=== PATIENT | female | born 1985 | race Caucasian/White ===

== ENCOUNTER 2018-08-14 11:33 | Emergency (ER) | payer OTHER ==
[~2018-08-14] VITALS: Ht 162.6 cm; Wt 47.6 kg
[~2018-08-14 11:33] MED LIST: ACETAMINOPHEN325 MG; ALPRAZOLAM 0.0.25 MG; ALPRAZOLAM1 MG PO; COLACE 100 MG100 MG PO; EXCEDRIN CAPLE1 EACH PO; IBUPROFEN 800800 M1 PO; IRON325 PO; KEFLEX500 MG PO; LANOLIN56 GM; LEXAPRO20 MG PO; NORCO 5-325 TA1 EACH PO; PREDNISONE 20 M20 MG PO; PROZAC 10 MG CA10 M1; PROZAC 20 MG20 MG PO; TRAZODONE HCL50 MG PO; ZANAFLEX4 MG
[2018-08-14 11:34] VITALS: BP 110/78
[2018-08-14 12:40] LABS: URINE BILIRUBIN NEGATIVE (Negative); URINE BLOOD 1+ (Negative); URINE CLARITY CLEAR; URINE COLOR YELLOW; URINE GLUCOSE-RANDOM* NEGATIVE (Negative); URINE KETONES NEGATIVE (Negative); URINE LEUKOCYTES-REFLEX NEGATIVE (Negative); URINE PROTEIN (DIPSTICK) TRACE (Negative); URINE SPECIFIC GRAVITY >= 1.030 (1.005-1.035); URINE UROBILINOGEN 0.2 E.U./dl (0.2-1.0)
[2018-08-14 12:41] LABS: ABSOLUTE NEUTROPHILS 7.4 thou/uL (1.4-8.2); BASOPHILS 0.9 % (0.0-2.0); EOSINOPHILS 2.4 % (0.0-3.0); HEMATOCRIT 42.4 % (37.0-47.0); HEMOGLOBIN 14.2 gm/dL (12.0-15.0); LYMPHOCYTES 18.2 % (24.0-44.0); MCH 31.7 pg (26.0-34.0); MCHC 33.4 g/dL (28.0-37.0); MCV 94.9 fL (80.0-100.0); MONOCYTES 6.2 % (1.0-8.0); PLATELET COUNT 323 thou/uL (150-400); POLYS 72.3 % (36.0-66.0); RBC 4.47 mil/uL (4.20-5.00); RDW 12.9 % (10.5-14.5); WBC 10.2 thou/uL (4.0-11.0)
[2018-08-14 12:41] LABS: URINE NITRITE-REFLEX POSITIVE (Negative)
[2018-08-14 12:48] LABS: CALCIUM 9.9 mg/dL (8.5-10.1); CREATININE 0.9 mg/dL (0.6-1.0); POTASSIUM 4.5 mmol/L (3.5-5.1)
[2018-08-14 12:50] LABS: AMORPHOUS URATES Moderate /LPF (None Seen); BACTERIA-REFLEX >30 Many /HPF (None Seen); CASTS None Seen /LPF (None Seen); SQUAMOUS 0-3 Few /LPF (0-3); URINE RBC 3-10 Few /HPF (0-2); URINE WBC-REFLEX 0-5 Rare /HPF (0-5)
[2018-08-14 12:54] LABS: ALBUMIN 4.3 g/dL (3.4-5.0); TOTAL BILIRUBIN 0.5 mg/dL (<0.1-1.0); TOTAL PROTEIN 7.6 g/dL (6.4-8.2)
[2018-08-14] MEDS ORDERED: MOBIC15 MG PO (13:12)
[2018-08-14] MEDS ORDERED: KEFLEX500 M1 PO (13:12)
[2018-08-14] MEDS ORDERED: DIFLUCAN150 MG PO (13:26)
== END 2018-08-14 16:16 | disposition home or self-care (01) ==
LOC: ER 11:33
PROVIDERS: Physician Assistant
DX: S00.83XA Contusion of other part of head, initial encounter (principal); S80.12XA Contusion of left lower leg, initial encounter; S80.11XA Contusion of right lower leg, initial encounter; N39.0 Urinary tract infection, site not specified; F17.210 Nicotine dependence, cigarettes, uncomplicated; Z98.890 Other specified postprocedural states; Y08.89XA Assault by other specified means, initial encounter; Y93.89 Activity, other specified; Y92.89 Other specified places as the place of occurrence of the external cause; Y99.8 Other external cause status

== ENCOUNTER 2019-03-15 22:35 | Emergency (ER) | payer OTHER ==
[~2019-03-15] VITALS: Ht 162.6 cm; Wt 47.6 kg
[~2019-03-15 22:35] MED LIST changes: +DIFLUCAN150 MG PO; +KEFLEX500 M1 PO; +MOBIC15 MG PO
[2019-03-15 23:40] LABS: URINE BILIRUBIN NEGATIVE (Negative); URINE BLOOD 1+ (Negative); URINE CLARITY CLEAR; URINE COLOR YELLOW; URINE GLUCOSE-RANDOM* NEGATIVE (Negative); URINE KETONES NEGATIVE (Negative); URINE LEUKOCYTES-REFLEX NEGATIVE (Negative); URINE NITRITE-REFLEX NEGATIVE (Negative); URINE PROTEIN (DIPSTICK) NEGATIVE (Negative); URINE UROBILINOGEN 0.2 E.U./dl (0.2-1.0)
[2019-03-15 23:54] LABS: BACTERIA-REFLEX None Seen /HPF (None Seen); CASTS None Seen /LPF (None Seen); CRYSTALS None Seen /LPF (None Seen); MUCUS None Seen strn/LPF (None Seen); SQUAMOUS None Seen /LPF (0-3); URINE RBC 0-2 Rare /HPF (0-2); URINE WBC-REFLEX 0-5 Rare /HPF (0-5)
[2019-03-16 02:02] LABS: ABSOLUTE NEUTROPHILS 7.6 thou/uL (1.4-8.2); BASOPHILS 0.6 % (0.0-2.0); HEMATOCRIT 37.7 % (37.0-47.0); HEMOGLOBIN 12.5 gm/dL (12.0-15.0); LYMPHOCYTES 20.9 % (24.0-44.0); MCH 29.8 pg (26.0-34.0); MCHC 33.2 g/dL (28.0-37.0); MCV 89.9 fL (80.0-100.0); MONOCYTES 7.5 % (1.0-8.0); PLATELET COUNT 320 thou/uL (150-400); RDW 15.5 % (10.5-14.5); WBC 10.8 thou/uL (4.0-11.0)
[2019-03-16 03:50] LABS: CALCIUM 8.6 mg/dL (8.5-10.1); CREATININE 0.7 mg/dL (0.6-1.0); POTASSIUM 3.9 mmol/L (3.5-5.1)
[2019-03-16 04:26] VITALS: BP 129/87
== END 2019-03-16 04:32 | disposition home or self-care (01) ==
LOC: ER 22:35
PROVIDERS: Emergency Medicine
DX: O20.0 Threatened abortion (principal); F17.210 Nicotine dependence, cigarettes, uncomplicated

== ENCOUNTER 2019-04-13 00:04 | Emergency (ER) | payer OTHER ==
[~2019-04-13] VITALS: Ht 152.4 cm; Wt 54.9 kg
[2019-04-13 01:05] LABS: ABSOLUTE NEUTROPHILS 3.8 thou/uL (1.4-8.2); BASOPHILS 0.6 % (0.0-2.0); EOSINOPHILS 3.4 % (0.0-3.0); HEMATOCRIT 42.6 % (37.0-47.0); HEMOGLOBIN 13.8 gm/dL (12.0-15.0); LYMPHOCYTES 39.4 % (24.0-44.0); MCH 28.6 pg (26.0-34.0); MCHC 32.4 g/dL (28.0-37.0); MCV 88.3 fL (80.0-100.0); MONOCYTES 10.4 % (1.0-8.0); PLATELET COUNT 359 thou/uL (150-400); POLYS 46.2 % (36.0-66.0); RBC 4.83 mil/uL (4.20-5.00); RDW 15.8 % (10.5-14.5); WBC 8.3 thou/uL (4.0-11.0)
[2019-04-13 01:07] LABS: ANION GAP 13 mmol/L (7-16); BUN 9 mg/dL (7-18); CALCIUM 9.5 mg/dL (8.5-10.1); CHLORIDE 102 mmol/L (98-107); CO2 27 mmol/L (21-32); CREATININE 1.1 mg/dL (0.6-1.0); GLUCOSE 65 mg/dL (74-106); POTASSIUM 4.2 mmol/L (3.5-5.1); SODIUM 142 mmol/L (136-145)
[2019-04-13 01:18] LABS: ALBUMIN 4.5 g/dL (3.4-5.0); MAGNESIUM 2.2 mg/dL (1.8-2.4); SGOT 19 U/L (15-37); SGPT 22 U/L (30-65); TOTAL BILIRUBIN 0.4 mg/dL (<0.1-1.0); TOTAL PROTEIN 8.1 g/dL (6.4-8.2); TROPONIN-I <0.06 ng/mL (<0.06)
[2019-04-13 01:20] LABS: URINE BILIRUBIN 1+ (Negative); URINE BLOOD NEGATIVE (Negative); URINE CLARITY CLOUDY; URINE COLOR YELLOW; URINE GLUCOSE-RANDOM* NEGATIVE (Negative); URINE KETONES TRACE (Negative); URINE LEUKOCYTES-REFLEX NEGATIVE (Negative); URINE NITRITE-REFLEX NEGATIVE (Negative); URINE PROTEIN (DIPSTICK) 2+ (Negative); URINE SPECIFIC GRAVITY >= 1.030 (1.005-1.035); URINE UROBILINOGEN 0.2 E.U./dl (0.2-1.0)
[2019-04-13 01:28] LABS: AMP/METHAMP POSITIVE (Negative); BARBITURATES Negative (Negative); BENZODIAZEPINES Negative (Negative); COCAINE Negative (Negative); METHADONE Negative (Negative); OPIATES Negative (Negative); PCP Negative (Negative)
[2019-04-13] MEDS ORDERED: TOPAMAX50 MG PO (01:46)
[2019-04-13] MEDS ORDERED: ALDACTONE50 MG PO (01:46)
[2019-04-13] MEDS ORDERED: LEVO-T75 MCG PO (01:47)
[2019-04-13] MEDS ORDERED: TIZANIDINE HCL 22 M1 PO (01:47)
[2019-04-13] MEDS ORDERED: ADDERALL 5 MG TA5 M1 PO (01:48)
[2019-04-13] MEDS ORDERED: PROZAC20 M1 PO (01:48)
[2019-04-13] MEDS ORDERED: XANAX 0.5 MG0.5 M1 PO (01:49)
[2019-04-13] MEDS ORDERED: MOBIC7.5 MG PO (01:49)
[2019-04-13 02:00] LABS: SQUAMOUS 4-10 Moderate /LPF (0-3); URINE RBC 3-10 Few /HPF (0-2); URINE WBC-REFLEX 0-5 Rare /HPF (0-5)
[2019-04-13 02:01] LABS: BACTERIA-REFLEX 1-9 Few /HPF (None Seen); CASTS None Seen /LPF (None Seen); CRYSTALS None Seen /LPF (None Seen); MUCUS 4-6 Moderate strn/LPF (None Seen)
[2019-04-13] MEDS ORDERED: NAPROXEN375 MG PO (02:02)
[2019-04-13 02:03] VITALS: BP 115/73
--- NOTE | 2019-04-13 09:07 | EKG ---
[facility] [place] [address] ELECTROCARDIOGRAM REPORT Name: TATE BOWEN [facility] [id number] Admission: 04/13/19 Attend Phys: Discharge: 04/13/19 Date of : 81 Report #: [id number] THIS REPORT FOR: cc: [facility] - Clinic physician unknown [facility] - Clinic physician unknown Juan J Felix MD [facility] ~ THIS REPORT FOR: //name// [facility] ED Test Date: 2019-04-13 Test Time: 00:39:59 Pat Name: TATE BOWEN Department: Room: Gender: F Home Manager: [facility] : 1985 Requested By: Tom Hooks Order Number: [id number] MD: Juan J Felix Measurements Intervals [place] Rate: 77 P: 45 VT: 138 QRS: 91 QRSD: 96 T: 61 QT: 372 QTc: 421 Interpretive Statements Sinus rhythm Borderline right axis deviation No previous ECG available for comparison Electronically Signed On 04-13-2019 9:06:51 [employer] by Juan J Felix [email or web address] <ELECTRONICALLY SIGNED> By: Juan J Felix MD, [facility] 04/13/19 [id number] Juan J Felix MD, FACC /EPI
== END 2019-04-13 02:31 | disposition home or self-care (01) ==
LOC: ER 00:04
PROVIDERS: Emergency Medicine
DX: R55 Syncope and collapse (principal); G89.29 Other chronic pain; M54.5 Low back pain; M79.7 Fibromyalgia; M19.90 Unspecified osteoarthritis, unspecified site; E03.9 Hypothyroidism, unspecified; G40.909 Epilepsy, unspecified, not intractable, without status epilepticus; I10 Essential (primary) hypertension; F15.10 Other stimulant abuse, uncomplicated; F17.210 Nicotine dependence, cigarettes, uncomplicated; Z90.49 Acquired absence of other specified parts of digestive tract; Z79.899 Other long term (current) drug therapy; Z88.8 Allergy status to other drugs, medicaments and biological substances; Z96.22 Myringotomy tube(s) status

== ENCOUNTER 2019-07-13 07:47 | Emergency (ER) | payer OTHER ==
[~2019-07-13] VITALS: Ht 162.6 cm; Wt 54.4 kg
[~2019-07-13 07:47] MED LIST changes: +ADDERALL 5 MG TA5 M1 PO; +ALDACTONE50 MG PO; +LEVO-T75 MCG PO; +MOBIC7.5 MG PO; +NAPROXEN375 MG PO; +PROZAC20 M1 PO; +TIZANIDINE HCL 22 M1 PO; +TOPAMAX50 MG PO; +XANAX 0.5 MG0.5 M1 PO
[2019-07-13 08:24] LABS: ABSOLUTE NEUTROPHILS 4.4 thou/uL (1.4-8.2); BASOPHILS 1.2 % (0.0-2.0); EOSINOPHILS 4.1 % (0.0-3.0); HEMATOCRIT 39.2 % (37.0-47.0); MCH 28.6 pg (26.0-34.0); MCHC 33.1 g/dL (28.0-37.0); MCV 86.5 fL (80.0-100.0); MONOCYTES 8.5 % (1.0-8.0); PLATELET COUNT 296 thou/uL (150-400); POLYS 59.2 % (36.0-66.0); RBC 4.53 mil/uL (4.20-5.00); WBC 7.5 thou/uL (4.0-11.0)
[2019-07-13] MEDS ORDERED: PROZAC20 M1 PO (08:25)
[2019-07-13] MEDS ORDERED: TRAZODONE HCL50 MG PO (08:25)
[2019-07-13] MEDS ORDERED: SPIRONOLACTONE50 MG PO (08:26)
[2019-07-13] MEDS ORDERED: MELOXICAM15 MG PO (08:26)
[2019-07-13] MEDS ORDERED: LEVO-T75 MCG PO (08:26)
[2019-07-13] MEDS ORDERED: ALPRAZOLAM 0.50.5 M1 PO (08:27)
[2019-07-13] MEDS ORDERED: TIZANIDINE HCL 22 M1 PO (08:27)
[2019-07-13 08:33] LABS: ANION GAP 5 mmol/L (7-16); BUN 9 mg/dL (7-18); CALCIUM 8.6 mg/dL (8.5-10.1); CHLORIDE 104 mmol/L (98-107); CO2 30 mmol/L (21-32); CREATININE 0.9 mg/dL (0.6-1.0); GLUCOSE 108 mg/dL (74-106); POTASSIUM 3.5 mmol/L (3.5-5.1); SODIUM 139 mmol/L (136-145)
[2019-07-13 08:39] LABS: SALICYLATE 5.3 mg/dL (2.8-20.0); SGOT 15 U/L (15-37); SGPT 19 U/L (30-65); TOTAL BILIRUBIN 0.2 mg/dL (0.2-1.0); TOTAL PROTEIN 7.1 g/dL (6.4-8.2)
[2019-07-13 08:51] LABS: URINE BILIRUBIN NEGATIVE (Negative); URINE BLOOD NEGATIVE (Negative); URINE CLARITY CLEAR; URINE COLOR YELLOW; URINE GLUCOSE-RANDOM* NEGATIVE (Negative); URINE KETONES NEGATIVE (Negative); URINE LEUKOCYTES-REFLEX NEGATIVE (Negative); URINE NITRITE-REFLEX NEGATIVE (Negative); URINE PROTEIN (DIPSTICK) NEGATIVE (Negative)
--- NOTE | 2019-07-13 08:56 | EKG ---
[facility] [place] [address] ELECTROCARDIOGRAM REPORT Name: TATE BOWEN Room #: REG [facility].#: [id number] Admission: 07/13/19 Attend Phys: Discharge: Date of : 81 Report #: [id number] THIS REPORT FOR: cc: [facility] - Clinic physician unknown [facility] - Clinic physician unknown Juan J Felix MD [facility] ~ THIS REPORT FOR: //name// [facility] ED Test Date: 2019-07-13 Test Time: 08:19:45 Pat Name: TATE BOWEN Department: Room: Gender: F Courier Delivery Driver: kf : 1985 Requested By: Ramon Romeo Order Number: [id number] MD: Juan J Felix Measurements Intervals [place] Rate: 82 P: 61 IN: 159 QRS: 82 QRSD: 95 T: 65 QT: 366 QTc: 428 Interpretive Statements Sinus rhythm RSR' in V1 or V2, probably normal variant Compared to ECG 04/13/2019 00:39:59 No significant change was found Electronically Signed On 07-13-2019 8:54:22 CDT by Juan J Felix [email or web address] <ELECTRONICALLY SIGNED> By: Juan J Felix MD, [facility] 07/13/19 0854 [id number] 8 Juan J Felix MD, [facility] /EPI
[2019-07-13 09:02] LABS: AMP/METHAMP POSITIVE (Negative); BARBITURATES Negative (Negative); BENZODIAZEPINES Negative (Negative); COCAINE Negative (Negative); METHADONE Negative (Negative); OPIATES Negative (Negative); PCP Negative (Negative)
[2019-07-13 11:51] VITALS: BP 116/77
== END 2019-07-13 11:57 | disposition home or self-care (01) ==
LOC: ER 07:47
PROVIDERS: Emergency Medicine
DX: F32.9 Major depressive disorder, single episode, unspecified (principal); F41.9 Anxiety disorder, unspecified; M19.90 Unspecified osteoarthritis, unspecified site; I10 Essential (primary) hypertension; E03.9 Hypothyroidism, unspecified; M79.7 Fibromyalgia; G40.909 Epilepsy, unspecified, not intractable, without status epilepticus; F17.210 Nicotine dependence, cigarettes, uncomplicated; Z79.899 Other long term (current) drug therapy; Z88.6 Allergy status to analgesic agent; Z98.890 Other specified postprocedural states

== ENCOUNTER 2019-08-23 17:50 | Emergency (ER) | payer OTHER ==
[~2019-08-23] VITALS: Ht 162.6 cm; Wt 51.3 kg
[~2019-08-23 17:50] MED LIST changes: +ALPRAZOLAM 0.50.5 M1 PO; +MELOXICAM15 MG PO; +SPIRONOLACTONE50 MG PO
[2019-08-23 18:24] LABS: HEMATOCRIT 39.7 % (37.0-47.0); HEMOGLOBIN 13.5 gm/dL (12.0-15.0); MCH 29.2 pg (26.0-34.0); MCV 85.8 fL (80.0-100.0); RBC 4.63 mil/uL (4.20-5.00); RDW 16.9 % (10.5-14.5); WBC 9.3 thou/uL (4.0-11.0)
[2019-08-23 18:27] LABS: CALCIUM 9.9 mg/dL (8.5-10.1); CREATININE 0.9 mg/dL (0.6-1.0); POTASSIUM 3.7 mmol/L (3.5-5.1)
[2019-08-23 19:28] LABS: URINE BILIRUBIN NEGATIVE (Negative); URINE BLOOD NEGATIVE (Negative); URINE CLARITY CLEAR; URINE COLOR YELLOW; URINE GLUCOSE-RANDOM* NEGATIVE (Negative); URINE KETONES TRACE (Negative); URINE LEUKOCYTES-REFLEX NEGATIVE (Negative); URINE NITRITE-REFLEX NEGATIVE (Negative); URINE PROTEIN (DIPSTICK) TRACE (Negative); URINE SPECIFIC GRAVITY >= 1.030 (1.005-1.035)
[2019-08-23] MEDS ORDERED: HYDROXYZINE HCL25 M2 PO (19:48)
[2019-08-23] MEDS ORDERED: MOBIC7.5 MG PO (20:06)
[2019-08-23 20:48] VITALS: BP 143/94
== END 2019-08-23 21:07 | disposition home or self-care (01) ==
LOC: ER 17:50
PROVIDERS: Physician Assistant
DX: S50.311A Abrasion of right elbow, initial encounter (principal); M54.2 Cervicalgia; M25.50 Pain in unspecified joint; I10 Essential (primary) hypertension; E10.9 Type 1 diabetes mellitus without complications; F17.210 Nicotine dependence, cigarettes, uncomplicated; Z90.49 Acquired absence of other specified parts of digestive tract; Z79.899 Other long term (current) drug therapy; Z88.8 Allergy status to other drugs, medicaments and biological substances; Y04.8XXA Assault by other bodily force, initial encounter; Y93.89 Activity, other specified; Y92.89 Other specified places as the place of occurrence of the external cause; Y99.8 Other external cause status